=== PATIENT | male | born 1965 | race Caucasian/White ===

== ENCOUNTER 2019-09-06 10:09 | Outpatient (REF) | payer BC, SELFPAY ==
[2019-09-06 12:56] LABS: ALT 37 U/L (16-63); AST 29 U/L (15-37); Alkaline Phosphatase 69 U/L (46-116); BUN 8 mg/dL (7-18); Bilirubin, Total 0.8 mg/dL (0.2-1.0); CREATININE 0.85 mg/dL (0.70-1.30); Calcium 9.8 mg/dL (8.5-10.1); Calculated LDL 170 mg/dL; Chloride 101 mmol/L (98-107); Cholesterol 260 mg/dL (50-200); Glucose 95 mg/dL (70-100); HDL Cholesterol 67 mg/dL (40-60); Potassium 5.1 mmol/L (3.5-5.1); Sodium 138 mmol/L (136-145); Total Protein 7.7 g/dL (6.4-8.2); Triglyceride 115 mg/dL (30-150)
[2019-09-07 12:30] LABS: PSA, Screening 0.5 ng/ml (0-3.5)
== END 2019-09-06 10:29 ==
LOC: NCHCN 10:09
PROVIDERS: PCP Specialist/Technologist Athletic Trainer; Visit Provider Specialist/Technologist Athletic Trainer
DX: Z00.00 Encounter for general adult medical examination without abnormal findings (principal); R03.0 Elevated blood-pressure reading, without diagnosis of hypertension; J30.2 Other seasonal allergic rhinitis; Z13.220 Encounter for screening for lipoid disorders; Z12.5 Encounter for screening for malignant neoplasm of prostate
CPT/HCPCS: 80053; 80061; 84153

== ENCOUNTER 2019-12-07 09:28 | Day surgery (SDC) | payer BC, SELFPAY ==
[2019-12-07 09:42] VITALS: BP 143/79; PULSE 81; RESP 17; TEMP 36.4; O2SAT 98
[2019-12-07] MEDS: Lactated Ringers 1,000 ML 80 ML IV (10:19)
--- NOTE | 2019-12-07 12:10 | W.PM.DSUDISC ---
Discharge Plan Disposition Patient Disposition: HOME Condition: Good Discharge Details Reason For Visit: colon scope Attending Provider: Lakshmi Roldan Primary Care Provider: Alonzo Retana Home Meds and New Rx's Prescriptions: Continued ascorbate calcium (vitamin C) 500 mg tablet 500 mg PO DAILY RF: 0 Discontinued polyethylene glycol 3350 17 gram/dose powder 238 g PO ONCE Qty: 238 RF: 0 bisacodyl [Dulcolax (bisacodyl)] 5 mg tablet,delayed release (DR/EC) 5 mg PO ONCE Qty: 4 RF: 0 Discharge Instructions Instructions: Diverticulosis (GEN), Diverticulosis Diet (GEN), High Fiber Diet (GEN) Additional Instructions: Findings: diverticula. no infections. no polyps Follow up: repeat in 10 yrs time Please call if you develop: fevers >101.5 Nausea or Vomiting Abdominal pain that is not transient DAY SURGERY UNIT POST COLONOSCOPY INSTRUCTIONS 1. Because there will be medication in your system for the next 24 hours, you may feel a little sleepy. Your coordination will be affected. Therefore: a. Do not drive or operate dangerous equipment for 24 hours. b. Do not drink alcohol beverages for 24 hours (not even beer). c. Plan to go home and rest for the day. 2. Generally there are no restrictions on your activity after a day or so has gone by, but you may feel a bit fatigued for a few days. 3 After you arrive home you may have a light meal and return to a normal diet as you can tolerate it without feeling sick to your stomach. 4. After surgery, you may feel pain or discomfort. This should be only transient, but if it persists please contact your doctor. 5. If there are any questions regarding the findings of your procedure, please feel free to contact your doctor. 6. If you are unable to contact your doctor with a problem, contact the hospital at [phone]. 7. Continue all your regular medications unless directed otherwise. I understand the above instructions and have no questions. Signature of Patient or Responsible Adult Escort Date/Time Name of Responsible Adult Escort Signature of Nurse Date/Time Activity:: No heavy lifting or strenuous activity x24 hours Diet:: Small light meals x20 Discharge Orders Discharge Orders: Discharge Order (Routine); Ordered 12/07/19 Ordered By: Lakshmi Roldan DS: Diagnosis Discharge Diagnosis (1) Diverticula of colon: Status: Acute
--- NOTE | 2019-12-07 12:11 | W.COLOREPORT ---
Date of service: 12/07/19 Time of Service: 12:11 Colonoscopy Report Date of procedure: 12/07/19 Pre-op diagnosis general: CRC screen Post-op diagnosis procedure note: other (divertic) Procedure: CE Surgeon: Lakshmi Roldan Anesthesia proc note operative: GETA Estimated blood loss (mL): 0 Pathology: none sent Disposition: same day Prep: Miralax/Dulcolax Procedure Description: After informed consent was obtained the patient was taken to the procedure room and placed in a left decubitous position. Monitors were applied and a time out was done. The patients name, date of , procedure, allergies to medications and metal in their body was reviewed. The patient was then sedated. Once sedated and comfortable a rectal exam was done. External exam was normal. Internal exam revealed a normal sphincter tone and no palpable masses. The prostate nl The scope was then introduced and retrofelexed. No internal hemorrhoids were identified. The scope was then advanced to the cecum S difficulty. The TI and appendiceal orifice were identified. The prep was good. The scope was then slowly retracted over 12 mins minutes back into the rectum. Polyps were removed at none. minor diverticula confined to the sigmoid colon. No signs of active bleeding or infection today. The scope was removed and the patient was woken up and taken back to Same day surgery in stable condition. The patient tolerated the procedure well and there were no immediate complications. Follow up: The patient should follow up in 10 years unless they develop changes in bowel habits or other new gastrointestinal complaints.
[2019-12-07 13:10] VITALS: BP 133/91; PULSE 67; RESP 16; TEMP 36.4; O2SAT 96
== END 2019-12-07 13:40 | disposition home or self-care (01) ==
PROVIDERS: PCP Specialist/Technologist Athletic Trainer; Visit Provider Surgery
PROC: 0DJD8ZZ Inspection of Lower Intestinal Tract, Via Natural or Artificial Opening Endoscopic (ICD-10-PCS; CPT 45378; principal; 2019-12-07 10:30)
DX: Z12.11 Encounter for screening for malignant neoplasm of colon (principal); K57.30 Diverticulosis of large intestine without perforation or abscess without bleeding
CPT/HCPCS: 45378; J2001

== ENCOUNTER 2021-06-10 13:31 | Outpatient (REF) | payer BC, SELFPAY ==
[2021-06-10 22:32] LABS: ALT 40 U/L (16-63); AST 26 U/L (15-37); Calculated LDL 181 mg/dL (<100); Cholesterol 282 mg/dL (<200); HDL Cholesterol 69 mg/dL (40-60); Triglyceride 160 mg/dL (<150)
== END 2021-06-10 13:32 | disposition home or self-care (01) ==
LOC: NCHCN 13:31
PROVIDERS: PCP Specialist/Technologist Athletic Trainer; Visit Provider Nurse Practitioner Family
DX: E78.5 Hyperlipidemia, unspecified (principal)
CPT/HCPCS: 80061; 84450; 84460

== ENCOUNTER 2021-12-09 14:54 | Outpatient (REF) | payer BC, SELFPAY ==
[2021-12-09 16:15] LABS: Calculated LDL 179 mg/dL (<100); Cholesterol 269 mg/dL (<200); HDL Cholesterol 68 mg/dL (40-60); Triglyceride 114 mg/dL (<150)
== END 2021-12-09 14:55 | disposition home or self-care (01) ==
LOC: NCHCN 14:54
PROVIDERS: PCP Specialist/Technologist Athletic Trainer; Visit Provider Nurse Practitioner Family
DX: E78.5 Hyperlipidemia, unspecified (principal)
CPT/HCPCS: 80061

== ENCOUNTER 2024-06-13 10:49 | Outpatient (REF) | payer BC, SELFPAY ==
[2024-06-13 14:38] LABS: HCT 43.7 % (40.0-50.0); HGB 15.1 g/dL (13.5-17.5); MCH 33.7 pg (27.0-33.0); MCHC 34.6 % (32.0-36.0); MCV 98 fL (80-95); MPV 10.4 fL (8.0-11.0); Platelet Count 248 10^3/uL (130-400); RBC 4.48 10^6/uL (4.36-5.78); RDW 11.6 % (11.8-14.1); RDW-SD 41.8 fL
[2024-06-13 15:04] LABS: ALT 44 U/L (16-63); AST 26 U/L (15-37); Albumin 3.9 g/dL (3.4-5.0); Alkaline Phosphatase 67 U/L (46-116); Anion Gap 8.7 mmol/L (3-11); BUN 8 mg/dL (7-18); CO2 28.3 mmol/L (21.0-32.0); CREATININE 0.9 mg/dL (0.70-1.30); Calcium 9.7 mg/dL (8.5-10.1); Calculated LDL 175 mg/dL (<100); Chloride 104 mmol/L (98-107); Cholesterol 250 mg/dL (<200); Estimated GFR 97.78 (mL/min/1.73m2); Glucose 90 mg/dL (74-106); HDL Cholesterol 55 mg/dL (40-60); Potassium 4.6 mmol/L (3.5-5.1); Sodium 141 mmol/L (136-145); Total Protein 7.5 g/dL (6.4-8.2); Triglyceride 100 mg/dL (<150)
[2024-06-13 23:21] LABS: PSA, Screening 0.7 ng/mL (<=4.5)
== END 2024-06-13 10:50 | disposition home or self-care (01) ==
LOC: NCHCN 10:49
PROVIDERS: PCP Specialist/Technologist Athletic Trainer; Visit Provider Nurse Practitioner Family
DX: Z00.00 Encounter for general adult medical examination without abnormal findings (principal); Z13.220 Encounter for screening for lipoid disorders; Z12.5 Encounter for screening for malignant neoplasm of prostate; Z13.0 Encounter for screening for diseases of the blood and blood-forming organs and certain disorders involving the immune mechanism; Z13.228 Encounter for screening for other metabolic disorders
CPT/HCPCS: 80053; 80061; 84153; 85027

== ENCOUNTER 2025-06-19 12:45 | Outpatient (REF) | payer SELFPAY ==
[2025-06-19 15:47] LABS: HCT 43.7 % (40.0-50.0); HGB 14.9 g/dL (13.5-17.5); MCH 33.6 pg (27.0-33.0); MCHC 34.1 % (32.0-36.0); MCV 98 fL (80-95); MPV 10.4 fL (8.0-11.0); Platelet Count 221 10^3/uL (130-400); RBC 4.44 10^6/uL (4.36-5.78); RDW 11.8 % (11.8-14.1); RDW-SD 42.6 fL; WBC 5.38 10^3/uL (4.4-10.8)
[2025-06-19 16:19] LABS: ALT 46 U/L (16-63); AST 23 U/L (15-37); Albumin 3.8 g/dL (3.4-5.0); Alkaline Phosphatase 69 U/L (46-116); Anion Gap 9.6 mmol/L (3-11); BUN 11 mg/dL (7-18); Bilirubin, Total 0.8 mg/dL (0.2-1.0); CO2 26.4 mmol/L (21.0-32.0); Calcium 9.4 mg/dL (8.5-10.1); Calculated LDL 183 mg/dL (<100); Chloride 102 mmol/L (98-107); Cholesterol 268 mg/dL (<200); Estimated GFR 104.83 (mL/min/1.73m2); Glucose 87 mg/dL (74-106); HDL Cholesterol 65 mg/dL (>or=40); Potassium 4.2 mmol/L (3.5-5.1); Sodium 138 mmol/L (136-145); Total Protein 7.4 g/dL (6.4-8.2); Triglyceride 103 mg/dL (<150)
[2025-06-19 22:50] LABS: PSA, Screening 1.2 ng/mL (<=4.5)
== END 2025-06-19 12:46 | disposition home or self-care (01) ==
LOC: NCHCN 12:45
PROVIDERS: PCP Specialist/Technologist Athletic Trainer; Visit Provider Nurse Practitioner Family
DX: Z00.00 Encounter for general adult medical examination without abnormal findings (principal); E78.5 Hyperlipidemia, unspecified; Z12.5 Encounter for screening for malignant neoplasm of prostate
CPT/HCPCS: 80053; 80061; 84153; 85027